=== PATIENT | male | born 1955 | race Hispanic/Latino ===

== ENCOUNTER 2023-07-22 14:51 | Emergency (ER) | payer MEDICARE, OTHER ==
[~2023-07-22] VITALS: Ht 180.3 cm; Wt 72.6 kg
[2023-07-22 14:55] VITALS: BP 123/70; PULSE 74; RESP 16
[2023-07-22 15:19] LABS: HEMATOCRIT 34.6 % (42-54); MEAN CORPUSCULAR HEMOGLOBIN 29.9 pg (27.0-33.0); MEAN CORPUSCULAR HGB CONC 34.7 g/dL (32.0-36.0); MEAN CORPUSCULAR VOLUME 86.3 fL (79-99); RED BLOOD CELL COUNT(AUTO) 4.01 MIL/uL (4.50-6.20); RED CELL DISTRIBUTION WIDTH 13.1 % (11.0-15.5); WHITE BLOOD COUNT (AUTO) 5.4 K/uL (4.8-10.8)
[2023-07-22 15:21] LABS: APPEARANCE,URINE CLEAR (CLEAR); BILIRUBIN,URINE NEGATIVE (NEGATIVE); COLOR,URINE LIGHT-YELLOW (YELLOW); GLUCOSE, URINE (UA) NEGATIVE (NEGATIVE); KETONES,URINE NEGATIVE (NEGATIVE); LEUKOCYTE ESTERASE ,URINE NEGATIVE Leu/uL (NEGATIVE); NITRATE,URINE NEGATIVE (NEGATIVE); OCCULT BLOOD,URINE NEGATIVE (NEGATIVE); PROTEIN,URINE NEGATIVE (NEGATIVE)
[2023-07-22 15:22] LABS: ADD UA MICROSCOPIC YES
[2023-07-22 15:23] LABS: BACTERIA,URINE RARE /HPF (None Seen); MUCUS,URINE RARE LPF (None Seen); RBC,URINE 0-1 /HPF (0-1); YEAST,URINE BUDDING RARE /HPF (None Seen)
[2023-07-22 15:30] LABS: POTASSIUM 4.2 mmol/L (3.5-5.1)
== END 2023-07-22 19:20 | disposition left against medical advice (07) ==
LOC: EDH 14:51
DX: R53.1 Weakness (principal); Z53.21 Procedure and treatment not carried out due to patient leaving prior to being seen by health care provider
CPT/HCPCS: 36415; 80048; 81001; 85027; 99281